=== PATIENT | male | born 1950 | race Caucasian/White ===

== ENCOUNTER 2021-02-19 05:36 | Outpatient (CLI) | payer MEDICARE, OTHER ==
[~2021-02-19] VITALS: Ht 170.2 cm; Wt 65.9 kg
[~2021-02-19 05:36] MED LIST: MULT-963 PO; PNT40TEC PO
[2021-02-21] MEDS ORDERED: OMG1KC PO (10:19)
[2021-02-21] MEDS ORDERED: [UNRECOGNIZED DRUG - CODE] PO (10:19)
[2021-02-21] MEDS ORDERED: CHOL400T3 PO (10:19)
== END 2021-02-21 13:27 | disposition home or self-care (01) ==
LOC: PREOP 05:36
PROVIDERS: ATTEND Surgery
DX: Z01.818 Encounter for other preprocedural examination (principal)

== ENCOUNTER 2021-03-19 12:08 | Day surgery (SDC) | payer MEDICARE, OTHER ==
--- NOTE | 2021-03-18 09:35 | HISTORY AND PHYSICAL ---
DATE OF SERVICE: PROCEDURE DATE: 03/19/2021. ATTENDING PRIMARY CARE PHYSICIAN: Dr. Yaniv Whiting. HISTORY: The patient is a 70-year-old male who is known to us. He has been seen before in the past for EGDs as well as colonoscopy. He was referred over to us in need of a screening colonoscopy. His last colonoscopy was in 05/2012 where he was found to have a mild to moderate sigmoid diverticulosis and mild external and internal hemorrhoids. He reports that he has not had any issues with any blood in his stool and denies any family history of any colon cancer. He denied any diarrhea, constipation or any abdominal pain. MEDICAL HISTORY: Gastroesophageal reflux disease, gout, hypertension, diverticulosis. SURGICAL HISTORY: None. ALLERGIES: No known drug allergies. MEDICATIONS: Allopurinol 100 mg, amlodipine 5 mg, Protonix 40 mg. SOCIAL HISTORY: Negative for tobacco smoke, social for alcohol. FAMILY HISTORY: None. VITAL SIGNS: Blood pressure 138/76. Current weight is 145.2 pounds, 5 feet 7 inches, with a body mass index is 22.7. REVIEW OF SYSTEMS: Well-nourished male, in no acute distress. He is not experiencing any shortness of breath or difficulty breathing. No chest pain, palpitations or diaphoresis. No nausea, vomiting or abdominal pain. No diarrhea or constipation. No red blood per rectum. No dark tarry stools. No fever or chills. No recent inadvertent weight loss. All other review of systems negative. PHYSICAL EXAMINATION: CHEST: Clear. Good breath sounds bilaterally. HEART: Regular, no murmurs. EXTREMITIES: No lower extremity edema. Negative Homans sign. HEENT: No scleral icterus. NECK: No cervical lymphadenopathy. ABDOMEN: Soft, nontender, nondistended. SKIN: Warm, dry and pink. NEUROLOGIC: Awake, alert and oriented x3. ASSESSMENT AND PLAN: A 70-year-old male who is in need of a screening colonoscopy. At this time, we will proceed with scheduling him for a screening colonoscopy. Job ID: [id number] DocumentID: [id number] Dictated Date: 03/18/2021 09:21:12 Slitter And Cutter Operator Date: 03/18/2021 09:34:46 Dictated By: NICANOR CHEUNG APRN
[~2021-03-19] VITALS: Ht 170 cm; Wt 65.9 kg
[~2021-03-19 12:08] MED LIST changes: +CHOL400T3 PO; +OMG1KC PO; +[UNRECOGNIZED DRUG - CODE] PO
[2021-03-19] MEDS ORDERED: LACTATED RINGERS 1,000 ML IV STA (12:15)
[2021-03-19] MEDS ORDERED: LIDOCAINE JELLY 2% 6 ML SYRINGE MM PRN (12:15)
[2021-03-19] MEDS ORDERED: LACTATED RINGERS 1,000 ML IV ONE (12:16)
[2021-03-19] MEDS ORDERED: MIDAZOLAM 2 MG/2 ML (VERSED) VIAL ONE (12:21)
[2021-03-19] MEDS ORDERED: PROPOFOL INJECTION 50 ML IV ONE ×2 (12:21→13:33)
[2021-03-19 12:30] VITALS: BP 137/73
--- NOTE | 2021-03-19 12:52 | Progress Note-Pre Operative ---
Pre-Operative Progress Note H&P Reviewed The H&P was reviewed, patient examined and no changes noted. Date Seen by Provider: Mar 19, 2021 Time Seen by Provider: 12:45 Date H&P Reviewed: Mar 19, 2021 Time H&P Reviewed: 12:45 Pre-Operative Diagnosis: screening ADAMARIS Vazquez MD Mar 19, 2021 12:52
--- NOTE | 2021-03-19 12:54 | Discharge Inst-Surgical ---
D/C Lap Instructions-SEBASTIAN Follow Up Activity as tolerated High Fiber Diet 25g or more per day Avoid Alcohol, Caffeine, Spicy [place] and Acid foods. Drink 64 fluid oz or more of fluids per day. Symptoms to Report: Fever over 101 degree F, Nausea/Vomiting If any problems/questions: Contact your physician or go to Emergency Room ADAMARIS CORTES MD Mar 19, 2021 12:54
[2021-03-19] MEDS ORDERED: ONDANSETRON 4 MG/2 ML (SDV) Z0FRAN IVP PRN (13:00)
[2021-03-19] MEDS ORDERED: ONDANSETRON 4 MG (ZOFRAN) ORAL DISSOLVE TAB PO PRN (13:00)
[2021-03-19 13:45] VITALS: BP 141/69
[2021-03-19 13:50] VITALS: BP 133/63
[2021-03-19 13:55] VITALS: BP_SYST 122; BP_SYST 132; BP_DIAS 59
--- NOTE | 2021-03-19 14:01 | Progress Note-Post Operative ---
Post-Operative Progess Note Surgeon (s)/V Groove Cutter (s) Surgeon ADAMARIS CORTES MD V Groove Cutter: none Pre-Operative Diagnosis screening colo Post-Operative Diagnosis mild chronic stage 2 ext and int hemorrhoids, mild-mod sigmoid diverticulosis. Procedure & Operative Findings Date of Procedure 03/19/21 Procedure Performed/Findings colonoscopy Anesthesia Type mac Estimated Blood Loss Estimated blood loss (mL): minimal Specimens/Packing Specimens Removed none ADAMARIS CORTES MD Mar 19, 2021 14:01
[2021-03-19 14:25] VITALS: BP 144/75
[2021-03-19 14:26] VITALS: BP 144/75
--- NOTE | 2021-03-19 16:22 | OPERATIVE REPORT ---
DATE OF SERVICE: 03/19/2021 ATTENDING PRIMARY CARE PHYSICIAN: Dr. Yaniv Whiting. PREOPERATIVE DIAGNOSIS: Screening colonoscopy. POSTOPERATIVE DIAGNOSES: Mild chronic stage II external and internal hemorrhoids, mild to moderate sigmoid diverticulosis. PROCEDURE: Colonoscopy. SURGEON: Adamaris Cortes MD. ANESTHESIA: Monitored anesthesia care. ESTIMATED BLOOD LOSS: Minimal. FINDINGS: Mild chronic stage II external and internal hemorrhoids, mild to moderate sigmoid diverticulosis. DISPOSITION: The patient tolerated the procedure well. INDICATIONS: The patient is a 70-year-old male known to us. He was referred over to us for screening colonoscopy. His last colonoscopy was 05/2012 where he was found to have mild to moderate sigmoid diverticulosis as well as a mild external and internal hemorrhoids. He does not report any major issues with diarrhea nor constipation as well as no red blood per rectum nor any dark tarry stools. He also does not report any family history of colon cancer. DESCRIPTION OF PROCEDURE: The patient was brought to the endoscopy suite, laid in the left lateral decubitus position. After adequate IV pain and sedative medications and monitored anesthesia care, a digital rectal examination was performed. Mild chronic stage II external and internal hemorrhoids were identified, which were not actively edematous nor inflamed and no bleeding. Normal sphincter tone was felt and there were no palpable masses. Prostate gland was palpable and appeared normal. The endoscope was then intubated into the anus and rectum gently insufflated. The endoscope was then advanced through the valves of Alvarez of the rectum with no polyps or any neoplasms identified. We then proceeded through the sigmoid colon where a mild to moderate sigmoid diverticulosis identified. There were no mucosal inflammatory changes to indicate any active diverticulitis. The endoscope was then advanced to the remainder of the descending, transverse and ascending colon to the cecum. These segments were normal. There were no polyps or any neoplasms identified throughout the colon or rectum. The endoscope was then slowly withdrawn while taking a second look and suctioning of residual air with no additional findings. The patient tolerated the procedure well. We will recommend continued medical management with high fiber diet with at least 30 grams of fiber daily as well as significant amounts of water to promote soft stools on a daily basis. If he is asymptomatic, he does not need another colonoscopy for another 10 years. Job ID: [id number] DocumentID: [id number] Dictated Date: 03/19/2021 13:51:14 Banker Mason Date: 03/19/2021 16:21:18 Dictated By: ADAMARIS CORTES MD
== END 2021-03-19 14:28 | disposition home or self-care (01) ==
LOC: ENDO 12:08
PROVIDERS: ATTEND Surgery
DX: Z12.11 Encounter for screening for malignant neoplasm of colon (principal); I10 Essential (primary) hypertension; K21.9 Gastro-esophageal reflux disease without esophagitis; M10.9 Gout, unspecified; Z79.899 Other long term (current) drug therapy; K57.30 Diverticulosis of large intestine without perforation or abscess without bleeding; K64.1 Second degree hemorrhoids